=== PATIENT | female | born 1985 | race Caucasian/White ===

== ENCOUNTER 2021-10-24 18:34 | Emergency (ER) | payer OTHER ==
[~2021-10-24 18:34] MED LIST: ADVIL200 M1 PO; BUPRENORPHIN-N1 EACH SL; CATAPRES 0.1MG0.1 MG PO; COLACE 100MG C100 MG PO; FEOSOL325 MG PO; HYDRALAZINE HCL50 MG PO; HYDROCHLOROTHIA25 MG PO; IBUPROFEN600 MG PO; KEFLEX CAP 500500 MG PO; LASIX20 MG PO; LISINOPRIL20 MG PO; LOPRESSOR100 MG PO; PRENATAL VITAM1 EAC8 PO; SPIRONOLACTONE100 MG PO; SUBOXONE 2 MG-1 EACH SL; SUBUTEX 8 MG TAB8 MG SL; TOPAMAX50 MG PO; TRANDATE 200 M200 MG PO; TYLENOL325 MG PO
[2021-10-24 21:24] LABS: HEMOGLOBIN 9.4 gm/dl (12.3-15.3); RED BLOOD COUNT 3.6 M/UL (4.00-5.10); WHITE BLOOD COUNT 4.9 K/UL (4.5-11.0)
[2021-10-24 21:42] LABS: BUN/CREATININE RATIO 28 (0-10)
== END 2021-10-24 23:30 | disposition left against medical advice (07) ==
LOC: ER1 18:34
PROVIDERS: Physician Assistant
DX: R10.9 Unspecified abdominal pain (principal); R10.817 Generalized abdominal tenderness; I11.0 Hypertensive heart disease with heart failure; I50.9 Heart failure, unspecified; Z88.8 Allergy status to other drugs, medicaments and biological substances
CPT/HCPCS: 36415; 80053; 81001; 82150; 83605; 83690; 83880; 84703; 85025; 99283; Q9967

== ENCOUNTER → 2021-11-20 | Outpatient (CLI) | payer OTHER | LOC: KOH-I 14:25 | DX: N17.9 Acute kidney failure, unspecified (principal) | CPT/HCPCS: 76775 ==

== ENCOUNTER → 2022-02-03 | Outpatient (CLI) | payer OTHER ==
[~2022-02-03] MED LIST changes: +CLARITIN10 M2 PO; +CULTURELLE1 EAC2 PO; +FIBER625 MG PO; +NORVASC5 MG PO; +PEPCID40 MG PO
[2022-02-03 09:11] LABS: HEMOGLOBIN 9.4 gm/dl (12.3-15.3); RED BLOOD COUNT 3.49 M/UL (4.00-5.10)
== END ==
LOC: OR 01-28 10:00 → CT 01-28 10:00 → OR 10:00 → CT 10:00
PROVIDERS: Internal Medicine Nephrology
DX: N28.89 Other specified disorders of kidney and ureter (principal); I11.0 Hypertensive heart disease with heart failure; I50.9 Heart failure, unspecified; N04.9 Nephrotic syndrome with unspecified morphologic changes; N17.9 Acute kidney failure, unspecified; E87.5 Hyperkalemia; D64.9 Anemia, unspecified; Z88.8 Allergy status to other drugs, medicaments and biological substances; Z79.82 Long term (current) use of aspirin
CPT/HCPCS: 77012; 84703; 85025; 85610; 85730; 88305; 88313; 88346; 88348

== ENCOUNTER → 2022-03-11 | Day surgery (SDC) | payer OTHER ==
[2022-03-10 14:19] LABS: HEMOGLOBIN 9.5 gm/dl (12.3-15.3); RED BLOOD COUNT 3.52 M/UL (4.00-5.10); WHITE BLOOD COUNT 5.3 K/UL (4.5-11.0)
[2022-03-10 15:52] LABS: BUN/CREATININE RATIO 28 (0-10)
[~2022-03-11] MED LIST changes: +SUBOXONE 8 MG-1 EACH SL
== END | disposition home or self-care (01) ==
LOC: OR 06:58
PROVIDERS: Surgery
DX: D59.3 Hemolytic-uremic syndrome (principal); I10 Essential (primary) hypertension; Z88.8 Allergy status to other drugs, medicaments and biological substances; Z79.899 Other long term (current) drug therapy
CPT/HCPCS: 71045; 77001; 80053; 84703; 85025; C1769; C1788; J0690; J1100; J1642; J2001; J2250; J2405; J2704; J3010; J7040

== ENCOUNTER 2022-04-05 22:11 | Emergency (ER) | payer OTHER ==
[2022-04-06 00:34] LABS: HEMOGLOBIN 9.9 gm/dl (12.3-15.3); RED BLOOD COUNT 3.73 M/UL (4.00-5.10)
[2022-04-06 01:17] LABS: BUN/CREATININE RATIO 24 (0-10)
[2022-04-06] MEDS ORDERED: REGLAN5 MG PO (02:06)
[2022-04-06] MEDS ORDERED: MAGNESIUM OXID400 M1 PO (02:06)
== END 2022-04-06 02:15 | disposition home or self-care (01) ==
LOC: ER1 22:11
PROVIDERS: Student in an Organized Health Care Education/Training Program
DX: R51.9 Headache, unspecified (principal); F17.290 Nicotine dependence, other tobacco product, uncomplicated
CPT/HCPCS: 70450; 71045; 80053; 81001; 82550; 82553; 84484; 84703; 85025; 93005; 96374; 96375; 99284; J2765; J3475